=== PATIENT | female | born 1995 | race Hispanic/Latino ===

== ENCOUNTER 2017-05-23 23:25 | Emergency (ER) | payer SELFPAY ==
--- NOTE | 2017-05-24 08:10 | RAD ---
2 VIEWS CHEST: COMPARISON: None. HISTORY: Cough that has gotten worse. Bronchitis. FINDINGS: Two views of the chest show normal sized cardiomediastinal silhouette. There is no evidence of consol idation, mass, or pleural effusion. The bones are unremarkable. IMPRESSION: No evidence of acute cardiopulmonary disease. POS: [facility]
== END 2017-05-24 01:33 | disposition home or self-care (01) ==
LOC: ERS 23:25
DX: J40 Bronchitis, not specified as acute or chronic (principal)
CPT/HCPCS: 71046

== ENCOUNTER 2017-08-21 16:12 | Emergency (ER) | payer SELFPAY | END 2017-08-21 18:30 | disposition home or self-care (01) | LOC: ERS 16:12 | DX: L30.9 Dermatitis, unspecified (principal) | CPT/HCPCS: 99282 ==